=== PATIENT | male | born 1975 | race Caucasian/White ===

== ENCOUNTER 2024-12-25 17:37 | Emergency (ER) | payer SELFPAY ==
--- NOTE | ~2024-12-25 | CT_ITS ---
CT brain wo con Ordering provider: Zenon Stringer PA-C History: 49 years Male with . AMS, etoh, rule out bleed . Comparison: None. Technique: CT of the head without contrast. Radiation reduction technique utilized. The dose-length p roduct was 605. mGy-cm. FINDINGS: BRAIN PARENCHYMA AND CSF SPACES: No midline shift, mass effect or hemorrhage. The brain parenchyma a nd CSF spaces are otherwise normal. VISUALIZED PARANASAL SINUSES: Bilateral maxillary, ethmoid and sphenoid sinus disease. MASTOIDS: Well aerated. BONES: The bones appear intact. SOFT TISSUES: Visualized nasopharynx is normal. Superficial soft tissues are normal. IMPRESSION: No acute intracranial findings. Reviewed, dictated and finalized at location A.
[2024-12-25 17:50] VITALS: BP 127/80; PULSE 90; RESP 20; TEMP 36.5; O2SAT 97
--- NOTE | 2024-12-25 18:16 | ED_ITS ---
HPI - General Adult General Chief complaint: Alcohol Stated complaint: ETOH Time Seen by Provider: 12/25/24 18:12 Source: patient Mode of arrival: ambulatory Limitations: intoxication History of Present Illness HPI narrative: This is a 49-year-old male who presents to the ED via private vehicle for complaint of ethanol intoxication. According to triage no, his coworkers brought him to the ER and then left. Apparently he was uncooperative with them and was going in and out of consciousness. Patient is currently intoxicated which is limiting history. He is able to tell me his name, where he is. 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 He tells me that he drank whiskey today. He repeatedly tells me he drank ?a little bit. And then tells us he drank 10 shots. When asked why he drank so much, he states ?because I am an idiot. ? Denies any medical complaints. Related Data Allergies Allergy/AdvReac Type Severity Reaction Status Date / Time No Known Allergies Allergy Verified 12/25/24 17:42 Review of Systems 2 Review of Systems: All systems as dictated in HPI Exam 2 Narrative: GENERAL: Clinically intoxicated. Mumbling and slurring words although able answer some questions appropriately. Follows commands. HEAD: Normocephalic, atraumatic. EYES: PERRLA and EOMI. ENT: Nares clear, no rhinorrhea or epistaxis. Mucous membranes moist. Oropharynx without tonsillar hypertrophy exudate or other lesions. NECK: Supple. No adenopathy or masses. CHEST: No respiratory distress. Clear to auscultation. No wheezes rales or rhonchi HEART: Regular rate and rhythm. No murmur heard. Normal peripheral pulses. ABDOMEN: Soft, nontender, nondistended, normal active bowel sounds. MSK: Normal range of motion. No edema. SKIN: Warm, dry, no rash. NEURO: Alert and oriented x3-4. He is alert oriented to himself and place. Unsure of the year. Moves all 4 extremities spontaneously. PSYCH: Normal mood and affect. Course Vital Signs Vital signs: Vital Signs Temperature 97.7 F 12/25/24 17:50 Pulse Rate 90 12/25/24 17:50 Respiratory Rate 20 12/25/24 17:50 Blood Pressure 127/80 12/25/24 17:50 Pulse Oximetry 97 12/25/24 17:50 Oxygen Delivery Room Air 12/25/24 17:50 Temperature 97.7 F 12/25/24 17:50 Pulse Rate 91 12/25/24 21:23 Respiratory Rate 16 12/25/24 21:23 Blood Pressure 121/68 12/25/24 21:23 Pulse Oximetry 98 12/25/24 21:23 Oxygen Delivery Room Air 12/25/24 17:50 Medical Decision Making MDM Narrative Medical decision making narrative: This is a 49-year-old male who presents to the ED for alcohol intoxication. Vitals are normal. Exam remarkable for the above. CT brain is negative. Lab work shows elevated alcohol level at 435 today. Otherwise labs are negative. Patient is starting to sober up clinically. He is fully alert oriented. Walking with steady gait. He has called a new over and is exiting the hospital with a sober ride stable condition. Vital Signs Vital Signs: Vital Signs Temperature 97.7 F 12/25/24 17:50 Pulse Rate 90 12/25/24 17:50 Respiratory Rate 20 12/25/24 17:50 Blood Pressure 127/80 12/25/24 17:50 Pulse Oximetry 97 12/25/24 17:50 Oxygen Delivery Room Air 12/25/24 17:50 Temperature 97.7 F 12/25/24 17:50 Pulse Rate 91 12/25/24 21:23 Respiratory Rate 16 12/25/24 21:23 Blood Pressure 121/68 12/25/24 21:23 Pulse Oximetry 98 12/25/24 21:23 Oxygen Delivery Room Air 12/25/24 17:50 Lab Data 12/25/24 18:25 12/25/24 18:25 Labs: Lab Results 12/25/24 12/25/24 Range/Units 18:25 19:35 WBC 6.7 (4.5-10.0) K/mm3 RBC 5.11 (4.6-6.20) M/mm3 Hgb 8.8 L (14.0-18.0) g/dL Hct 31.2 L (42.0-52.0) % MCV 61.1 L (80-100) fl MCH 17.2 L (26-34) pg MCHC 28.2 L (32-36) g/dl RDW 23.8 H (11.5-14.5) % Plt Count 503 H (150-375) k/mm3 MPV 8.3 (7.4-10.4) fl Immature Gran % (Auto) 0.1 (0-0.5) % Neut % (Auto) 37.9 L (45.5-73.1) % Lymph % (Auto) 41.5 (18.3-44.2) % [place] % (Auto) 11.6 H (2.6-8.5) % Eos % (Auto) 6.5 H (0-4.4) % Baso % (Auto) 2.4 H (0.2-1.2) % Lymph # (Auto) 2.80 (0.9-3.2) K/mm3 [place] # (Auto) 0.8 H (0.1-0.6) K/mm3 Eos # (Auto) 0.4 H (0-0.3) K/mm3 Baso # (Auto) 0.2 H (0.0-0.1) K/mm3 Abs Immat Gran (auto) 0.01 (0.00-0.031) K/mm3 Absolute Neuts (auto) 2.6 (1.3-6.7) K/mm3 Absolute Nucleated RBC 0.000 (0.0-0.012) K/mm3 Band Neutrophils % 0 (0-6) % Nucleated RBC % 0.0 (0.0-0.2) % Platelet Estimate Increased (Adequate) Hypochromasia 1+ Anisocytosis 3+ Microcytosis 1+ (NORMAL) Schistocytes None seen Sodium 145 (137-145) mmol/L Potassium 4.1 (3.4-5.0) mmol/L Chloride 108 H (98-107) mmol/L Carbon Dioxide 25 (22-30) mmol/L Anion Gap 12 (4-12) mmol/L BUN 12 (9-20) mg/dL Creatinine 1.07 (0.7-1.3) mg/dL Estim Creat Clear Calc 84 ml/min Estimated GFR > 60 (59 - ) Glucose 114 H (65-110) mg/dL Calcium 7.8 L (8.4-10.2) mg/dL Total Bilirubin 0.3 (0.2-1.3) mg/dL AST 23 (17-59) U/L ALT 16 (6-50) U/L Alkaline Phosphatase 73 (38-126) U/L Total Protein 7.0 (6.3-8.2) g/dL Albumin 4.1 (3.5-5.1) g/dL Urine Color Yellow (Yellow) Urine Appearance Clear (Clear) Urine pH 6.5 (5.0-9.0) Ur Specific [place] 1.009 (1.001-1.035) Urine Protein Negative (Negative) mg/dL Urine Glucose (UA) Negative (Negative) mg/dL Urine Ketones Negative (Negative) mg/dL Ur Blood (Man) Negative (Negative) Urine Nitrate Negative (Negative) Urine Bilirubin Negative (Negative) Urine Urobilinogen 0.2 (<2.0) mg/dL Leukocyte Esterase Rfl Negative (Negative) TITI/UL Urine Opiates Screen Negative (Negative) Urine Methadone Screen Negative (Negative) Ur Barbiturates Screen Negative (Negative) Ur Phencyclidine Scrn Negative (Negative) Ur Amphetamine Screen Negative (Negative) U Benzodiazepines Scrn Negative (Negative) Urine Cocaine Screen Negative (Negative) U Cannabinoids Screen Negative (Negative) Ethyl Alcohol 435 H* (<10) mg/dL Discharge Plan Discharge Clinical Impression: Alcoholic intoxication Patient Disposition: Home, Self-Care Condition: Stable Instructions: Antibiotic Form, Alcohol Intoxication (ED) Patient Language: Malay Follow-up/Referrals: PHYSICIAN NOT ON STAFF,NONSTAFF [Primary Care Provider] - Time of Disposition: 01:36
[2024-12-25 18:18] VITALS: BP 119/79; PULSE 86; RESP 13; O2SAT 98
[2024-12-25 18:31] LABS: Basophils Absolute Auto 0.2 K/mm3 (0.0-0.1); Basophils Percent Auto 2.4 % (0.2-1.2); Eosinophils Absolute Auto 0.4 K/mm3 (0-0.3); Eosinophils Percent Auto 6.5 % (0-4.4); Hematocrit 31.2 % (42.0-52.0); Hemoglobin 8.8 g/dL (14.0-18.0); Immature Granulocyte Absolute 0.01 K/mm3 (0.00-0.031); Immature Granulocyte Percent A 0.1 % (0-0.5); Lymphocytes Percent Auto 41.5 % (18.3-44.2); Mean Corpuscular HGB Conc 28.2 g/dl (32-36); Mean Corpuscular Hemoglobin 17.2 pg (26-34); Mean Corpuscular Volume 61.1 fl (80-100); Mean Platelet Volume 8.3 fl (7.4-10.4); Monocytes Absolute Auto 0.8 K/mm3 (0.1-0.6); Monocytes Percent Auto 11.6 % (2.6-8.5); Neutrophils Absolute Auto 2.6 K/mm3 (1.3-6.7); Neutrophils Percent Auto 37.9 % (45.5-73.1); Platelet Count Result 503 k/mm3 (150-375); Red Blood Count 5.11 M/mm3 (4.6-6.20); Red Cell Distribution Width 23.8 % (11.5-14.5); White Blood Count 6.7 K/mm3 (4.5-10.0)
--- OUTSIDE RECORDS SUMMARY | 2024-12-25 18:37 | XMS_ITS | Clinical Summary ---
Author Organization [facility] Address [address] [place] [id number] Care Team Providers Care Core Cutter Name Role Phone Unavailable Primary Care Provider Unavailabl e Allergies No known active allergies Medications peg 400-hypromellos e-glycerin (ARTIFICAL TEARS) 1-0.2-0.2 % ophthalmic solution Administer 1 drop into the right eye 3 (three) times a day 15 mL [address] (PROTONIX) 40 mg EC tabletIndicatio ns:GI Bleed Take 1 tablet (40 mg total) by mouth 2 (two) times a day with lunch and bedtime 60 tablet 4 Active Active Problems Problem Noted Date Diagnosed Date Facial droop 08/29/2024 Family History Medical History Relation Name Comments Hypertension Mother Relation Name Status Comments Mother Social History Tobacco Use Types Packs/Day Years Used Date Smoking Tobacco: Never Assessed Personal Safety Answer Date Recorded Have you ever been in or are you currently in a harmful physical or emotional relationship or is someone making you feel afraid or unsafe? 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 Gender Identity Not on file Sexual Orientation Not on file Obstetrics History Last Filed Vital Signs Vital Sign Reading Time Taken Comments Blood Pressure 131/83 08/30/2024 8:23 AM ISOBUTYLENE OPERATOR CHIEF Pulse 67 08/30/2024 8:23 AM ISOBUTYLENE OPERATOR CHIEF Temperature 36.7 C (98.1 F) 08/30/2024 8:23 AM ISOBUTYLENE OPERATOR CHIEF Respiratory Rate 18 08/30/2024 8:23 AM ISOBUTYLENE OPERATOR CHIEF Oxygen Saturation 99% 08/30/2024 8:23 AM ISOBUTYLENE OPERATOR CHIEF Inhaled Oxygen Concentration - - Weight 94.3 kg (207 lb 14.3 oz) 08/29/2024 4:49 PM ISOBUTYLENE OPERATOR CHIEF Height 177.8 cm (5' 10 ) 08/29/2024 4:09 PM ISOBUTYLENE OPERATOR CHIEF Body Mass Index 29.83 08/29/2024 4:09 PM ISOBUTYLENE OPERATOR CHIEF Plan of Treatment Health Maintenance Due Date Last Done Comments Colon Cancer Screening-Colonoscopy 1975 Depression Screening 1975 Hepatitis C Screening 1975 DTaP/Tdap/Td Vaccine (1 - Tdap) 1986 Hepatitis B Screening 1993 Regular Well Visit/Exam 18-64 1993 Influenza Vaccine (#1) 2024 Pneumococcal vaccine <65 Aged Out No longer eligible based on patient's age to complete this topic Advance Directives For more information, please contact: [phone] * Full Code (Latest Code Status on File) Date Activated Date Inactivated Comments 08/29/2024 5:14 PM 08/30/2024 5:33 PM
--- OUTSIDE RECORDS SUMMARY | 2024-12-25 18:37 | XMS_ITS | Referral Summary ---
Author Organization [facility] Address [address] [place] [id number] Care Team Providers Care Enrollment Consultant Name Role Phone Unavailable Primary Care Provider [...] Noted Date Diagnosed Date Facial droop 08/29/2024 Social History Tobacco Use Types Packs/Day Years Used Date Smoking Tobacco: Never Assessed Personal Safety Answer Date Recorded Have you ever been in or are you currently in a harmful physical or emotional relationship or is someone making you feel afraid or unsafe? 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 Gender Identity Not on file Sexual Orientation Not on file Last Filed Vital Signs Vital Sign Reading Time Taken Comments Blood Pressure 131/83 08/30/2024 8:23 AM CONTACT MANAGER Pulse 67 08/30/2024 8:23 AM CONTACT MANAGER Temperature 36.7 C (98.1 F) 08/30/2024 8:23 AM CONTACT MANAGER Respiratory Rate 18 08/30/2024 8:23 AM CONTACT MANAGER Oxygen Saturation 99% 08/30/2024 8:23 AM CONTACT MANAGER Inhaled Oxygen Concentration - - Weight 94.3 kg (207 lb 14.3 oz) 08/29/2024 4:49 PM CONTACT MANAGER Height 177.8 cm (5' 10 ) 08/29/2024 4:09 PM CONTACT MANAGER Body Mass Index 29.83 08/29/2024 4:09 PM CONTACT MANAGER Plan of Treatment Not on file Advance Directives For more information, please contact: [phone] * Full Code (Latest Code Status on File) Date Activated Date Inactivated Comments 08/29/2024 5:14 PM 08/30/2024 5:33 PM
[2024-12-25 18:56] LABS: Platelet Estimate Increased (Adequate)
[2024-12-25 18:57] LABS: Hypochromasia 1+; Schistocytes None Seen
[2024-12-25 18:58] LABS: Anisocytosis 3+; Band Neutrophils Percent 0 % (0-6); Microcytosis 1+ (NORMAL)
[2024-12-25 19:07] LABS: Ethanol 435 mg/dL (<10)
[2024-12-25 19:18] LABS: Alanine Aminotransferase 16 U/L (6-50); Albumin Level 4.1 g/dL (3.5-5.1); Alkaline Phosphatase 73 U/L (38-126); Anion Gap 12 mmol/L (4-12); Aspartate Amino Transferase 23 U/L (17-59); Bilirubin,Total 0.3 mg/dL (0.2-1.3); Blood Urea Nitrogen 12 mg/dL (9-20); Calcium 7.8 mg/dL (8.4-10.2); Carbon Dioxide 25 mmol/L (22-30); Chloride 108 mmol/L (98-107); Estimated CRCL calculation 84 ml/min; Estimated Glomerular Filt Rate > 60; Glucose 114 mg/dL (65-110); Potassium 4.1 mmol/L (3.4-5.0); Sodium 145 mmol/L (137-145)
[2024-12-25 19:52] LABS: Add Urine Microscopic? NO; Appearance Urine Clear (Clear); Bilirubin Urine Negative (Negative); Blood Urine Negative (Negative); Color Urine Yellow (Yellow); Glucose Urine UA Negative (Negative); Ketones Urine Negative (Negative); Leukocyte Esterase Ur Negative LEU/UL (Negative); Nitrate Urine Negative (Negative); Protein Urine Negative (Negative); Specific Grav Ur 1.009 (1.001-1.035); Urobilinogen Urine 0.2 mg/dL (<2.0); pH Urine 6.5 (5.0-9.0)
[2024-12-25 20:25] VITALS: BP 121/79; PULSE 82; RESP 16; O2SAT 96
[2024-12-25 20:25] LABS: Amphetamine Screen Urine Negative (Negative); Barbiturate Screen Urine Negative (Negative); Benzodiazepines Screen Urine Negative (Negative); Cannabinoid Screen Urine Negative (Negative); Cocaine Screen Urine Negative (Negative); Methadone Screen Urine Negative (Negative); Opiate Screen Urine Negative (Negative); Phencyclidine Screen Urine Negative (Negative)
[2024-12-25 21:23] VITALS: BP 121/68; PULSE 91; RESP 16; O2SAT 98
[2024-12-26 01:25] VITALS: BP 127/87; PULSE 87; RESP 16; O2SAT 98
--- NOTE | 2024-12-26 04:50 | PC.NURSE ---
0215 Pt left the ED with his IV still in place. Pt was told he could try to call someone to take him home but that they would need to come in to get him. Pt left his room asking other staff for the way out and stated he had ordered an uber and it was picking him up in the front of the hospital. Pt was not stopped because the staff that witnessed him leaving did not know he had an IV nor did they know his plan of care. Pt was seen ambulating with a steady gait and appeared coherent according to the witnesses (Zenon AUGUSTINE, Abbi GUNN, and Ismael RN). Cassy PA was notified of the patient leaving with IV and given a physical description of him.
== END 2024-12-26 02:45 | disposition home or self-care (01) ==
PROVIDERS: Emergency Provider Physician Assistant
DX: F10.129 Alcohol abuse with intoxication, unspecified (principal); Y90.8 Blood alcohol level of 240 mg/100 ml or more
CPT/HCPCS: 36415; 70450; 80053; 80307; 81003; 82077; 85025; 99284